=== PATIENT | male | born 1935 | race African-American/Black ===

== ENCOUNTER 2018-08-22 06:10 | Day surgery (SDC) | payer OTHER ==
[2018-08-17 13:58] LABS: Absolute Lymphocytes (CBC) 1.3 K/uL (0.7-4.9); Absolute Monocytes 0.8 K/uL (0.1-1.3); Absolute Neutrophil 2.2 K/uL (1.8-8.0); Basophils % 1.8 % (0-1.3); Eosinophils % 8.3 % (0-4.4); Hematocrit 29.8 % (39.6-49.0); MPV 8.1 fL (7.6-11.3); Monocytes % 16.5 % (3.3-12.3); RBC Red Blood Cell Count 4.45 M/uL (4.33-5.43)
[2018-08-17 14:03] LABS: Protime INR 1.11
[2018-08-17 14:10] LABS: Potassium 3.6 mmol/L (3.5-5.1)
--- NOTE | 2018-08-17 14:46 | RAD REPORT ---
EXAM DESCRIPTION: Keot Pa And Lat (2 Views)08/17/2018 2:39 pm CLINICAL HISTORY: Preop for heart catheterization COMPARISON: 2012 FINDINGS: Bilateral interstitial lung opacities are without obvious change and may represent pulmona ry fibrosis. A lung consolidation is not noted. The heart is normal size
[2018-08-17 15:17] LABS: Blood Morphology Comment NOTED (NOT SEEN); Platelet Estimate INCR; Urine White Blood Cell Casts OK
[2018-08-17 15:18] LABS: Anisocytosis 1+; Hypochromasia 1+; Poikilocytosis 1+; Polychromasia 1+
[2018-08-22] MEDS ORDERED: NA CHLORIDE 0.9% 500 ML ONE (07:47)
[2018-08-22] MEDS ORDERED: LIDOCAINE 1% MPF 30 ML VIAL ONE (08:12)
[2018-08-22] MEDS ORDERED: HEPA 1000U/500MLS 1,000 UNIT/500 ML BAG IV ONE (08:12)
[2018-08-22] MEDS ORDERED: MIDAZOLAM HCL 2 MG/2 ML INJ ONE (08:28)
[2018-08-22] MEDS ORDERED: FENTANYL CITR 100 MCG/2 ML ONE (08:29)
[2018-08-22] MEDS ORDERED: NA CHLORIDE 0.9% 0 ML ONE (08:29)
[2018-08-22] MEDS ORDERED: ATROPINE SULF 1 MG/10 ML SYR IV ONE (08:29)
[2018-08-22 10:50] VITALS: BP 165/71; TEMP 97.1; O2SAT 99
--- NOTE | 2018-08-22 19:07 | OP ---
Surgeon: Brian Kaur MD Indications: A patient of Dr. 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 Reason for admission was coronary artery disease, abnormal stress test, cerebrovascular disease, abnormal c arotid Dopplers. Procedure In Detail: The patient is 83, was prepped and draped in the routine sterile fashion. He u nderwent a left heart catheterization, selective coronary artery angiogram, and selective bilateral c arotid angiogram. He was given 2 mg of Versed for sedation. Right common femoral artery access obta ined with a 6-Guyanese sheath. Angio-Seal was used to close the case. Angiography there was normal. Left heart catheterization showed a 40% mid LAD, diffuse plaquing in the circumflex and the RCA. He was left dominant. No significant focal stenosis. The carotid showed a 90% right internal carotid a rtery and 80% left internal carotid artery stenosis. 6-Guyanese sheath was used. No complications. Blood Loss: 5 cc. Postoperative Diagnoses: Coronary artery disease, mild, and cardiovascular disease, severe. Plan: Bilateral CEA. Co-yoker machine operator: Nilo Zapata. Anesthesia: Conscious sedation was 30 minutes. BRITTANIE/LASHONDA Voice ID: [id number] Report ID: [id number]
== END 2018-08-22 11:00 | disposition home or self-care (01) ==
LOC: CCL 06:10
DX: I25.10 Atherosclerotic heart disease of native coronary artery without angina pectoris (principal); I65.23 Occlusion and stenosis of bilateral carotid arteries; I44.7 Left bundle-branch block, unspecified; Z87.891 Personal history of nicotine dependence; Z85.46 Personal history of malignant neoplasm of prostate; Z92.3 Personal history of irradiation
CPT/HCPCS: 85025; 80048; 36415; 85610; 85730; 71046; 93454; 36222; C1893; C1760; J2250; J3010; J0583

== ENCOUNTER 2020-11-24 06:30 | Day surgery (SDC) | payer OTHER ==
--- NOTE | 2020-11-21 14:39 | RAD REPORT ---
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 No acute interstitial process identifiable. Severity of chronic disease could mask mild edema or infiltrate. No significant failure or volume overload id entifiable. Trachea is midline. Hilar regions within normal limits. Heart size is normal and central vasculatur e is within normal limits. No pleural effusion or pneumothorax seen. No acute bony finding noted. No aortic abnormality. IMPRESSION: No acute cardiopulmonary process. Prominent interstitial pattern matches comparison.
[2020-11-21 14:46] LABS: Potassium 3.9 mmol/L (3.5-5.1)
[2020-11-21 14:51] LABS: Absolute Lymphocytes (CBC) 1.2 K/uL (0.7-4.9); Basophils % 1.7 % (0-1.3); Hematocrit 31.1 % (39.6-49.0); Lymphocytes % 22.4 % (15.3-44.8); MPV 8.3 fL (7.6-11.3); RBC Red Blood Cell Count 4.73 M/uL (4.33-5.43)
[2020-11-21 15:17] LABS: Protime INR 1.08
[2020-11-21 18:44] LABS: Blood Morphology Comment NOTED (NOT SEEN); Hypochromasia 1+; Poikilocytosis 2+; Target Cells FEW; Teardrop Cell FEW
[2020-11-21 18:45] LABS: Burr Cells FEW; Platelet Estimate INCR; White Blood Cell Scan OK (OK)
--- NOTE | 2020-11-22 09:45 | EKG ---
Test Date: 2020-11-21 Test Time: 13:07:21 Construction Equipment Mechanic: Radha MEASUREMENT RESULTS: Intervals: Rate: 63 MN: 162 QRSD: 152 QT: 452 QTc: 462 [place]: P: 77 MN: 162 QRS: 2 T: 97 INTERPRETIVE STATEMENTS: Normal sinus rhythm Nonspecific intraventricular block Abnormal ECG Compared to ECG 05/05/2012 07:11:11 Sinus bradycardia no longer present Electronically Signed On 11-22-20 09:43:43 CDT by Brian Kaur
[2020-11-24] MEDS ORDERED: NA CHLORIDE 0.9% 500 ML ONE (07:03)
[2020-11-24] MEDS ORDERED: HEPA 1000U/500MLS 1,000 UNIT/500 ML BAG IV ONE (07:03)
[2020-11-24] MEDS ORDERED: LIDOCAINE 1% 20 ML MDV ONE (07:03)
[2020-11-24] MEDS ORDERED: MIDAZOLAM HCL 2 MG/2 ML INJ ONE (07:35)
[2020-11-24] MEDS ORDERED: FENTANYL CITR 100 MCG/2 ML ONE (07:35)
[2020-11-24] MEDS ORDERED: ATROPINE SULF 1 MG/10 ML SYR IV ONE (07:36)
[2020-11-24] MEDS ORDERED: ACETYLCYST 20% 4 ML VIAL IH ONE (08:05)
[2020-11-24 09:02] VITALS: TEMP 96
--- NOTE | 2020-11-24 10:30 | OP ---
Surgeon: Brian Kaur MD Oxygen Therapist: Marta Cobian. Reason For Admission: Selective bilateral carotid angiogram. Indication: Cerebrovascular disease by Doppler. Procedure In Detail: The patient was brought to the laborer powerhouse, prepped and draped in routine sterile fashion. Given fentanyl and Versed for sedation. A 6-Prydeinig sheath was introduced successfully in t he right common femoral artery. Angiography there was normal. Angio-Seal was used to close the case . A JR4 catheter was used to select the right common carotid artery and the left common carotid qi ry separately. He was found to have a 50% right ICA. His common carotid artery and external carotid artery on the right and the left were normal. He, however, had a very tight 80% plus lesion in the left internal carotid artery. There were no complications. Blood Loss: 5 mL. Anesthesia: Total conscious sedation was 45 minutes. Postoperative Diagnosis: Severe left internal carotid artery stenosis. He needs a left carotid enda rterectomy. He has a moderate right carotid stenosis. Plan: The patient will remain in the hospital for 2 hours of bedrest. He will have a CD with him an d will make appointment for him to see a cardiovascular surgeon in [place] for endarterectomy in the near future. BRITTANIE/LASHONDA Voice ID: [id number] Report ID: [id number]
[2020-11-24 15:01] VITALS: O2SAT 99
[2020-11-24 15:03] VITALS: BP 149/63
== END 2020-11-24 14:10 | disposition home or self-care (01) ==
LOC: CCL 06:30
DX: I65.23 Occlusion and stenosis of bilateral carotid arteries (principal); I25.10 Atherosclerotic heart disease of native coronary artery without angina pectoris; I10 Essential (primary) hypertension; I44.7 Left bundle-branch block, unspecified; E78.00 Pure hypercholesterolemia, unspecified; Z87.891 Personal history of nicotine dependence
CPT/HCPCS: 93005; 85025; 80048; 36415; 85610; 85730; 71046; 36222 ×2; C1893; C1760; J2250; J3010; J7040; J1644

== ENCOUNTER 2021-12-08 14:23 | Inpatient (IN) | payer OTHER ==
[2021-12-08] MEDS ORDERED: MORPHINE 2 MG/ML SYR ONE (15:21)
[2021-12-08] MEDS ORDERED: ONDANSETRON 4 MG/2 ML VIAL ONE (15:21)
[2021-12-08 15:26] LABS: Urine Blood Negative (Negative); Urine Glucose Negative (Negative); Urine Protein Negative (Negative); Urine Specific Gravity 1.025 (1.005-1.030); Urine pH 5.5 (5.0-7.0)
[2021-12-08 15:46] LABS: Absolute Lymphocytes (CBC) 0.9 K/uL (0.7-4.9); Hematocrit 27.1 % (39.6-49.0); Lymphocytes % 13.1 % (15.3-44.8); MCV 67.4 fL (80-100); MPV 8.2 fL (7.6-11.3); RBC Red Blood Cell Count 4.02 M/uL (4.33-5.43)
[2021-12-08 16:01] LABS: Urine Bacteria <20 /HPF (NONE SEEN); Urine Mucus SLIGHT /HPF (NONE SEEN); Urine RBC <5 /HPF (NONE SEEN)
[2021-12-08 16:04] LABS: Albumin 3.5 g/dL (3.4-5.0); Bilirubin Total 1.4 mg/dL (0.2-1.0); Potassium 4.1 mmol/L (3.5-5.1); Protein, Total 7.3 g/dL (6.4-8.2)
[2021-12-08] MEDS ORDERED: NA CHLORIDE 0.9% 250 ML ONE (16:13)
--- NOTE | 2021-12-08 16:56 | RAD REPORT ---
EXAM DESCRIPTION: CTAbdomen Pelvis W Contrast - 12/08/2021 4:45 pm CLINICAL HISTORY: Abdominal pain. LLQ abdominal pain COMPARISON: No comparisons TECHNIQUE: Biphasic CT imaging of the abdomen and pelvis was performed with 100 ml non-ionic IV cont rast. All CT scans are performed using dose optimization technique as appropriate and may include automated exposure control or mA/KV adjustment according to patient size. FINDINGS: The lower lung lewis are emphysematous with atelectasis in the inferior left lung base. The liver contains a 18 mm hypodensity in the superior right lobe likely a cyst. Additional small cys ts are suspected in the liver. No intra or extrahepatic biliary tree dilatation. The spleen, pancreas , adrenal glands and kidneys are within normal limits. Benign right renal cyst measuring 27 mm. Mild free fluid is seen in the abdomen or pelvis. There is moderate retained colonic stool seen throu ghout the colon. Sigmoid diverticulosis is present without diverticulitis. Nonvisualization the appen jordan. Moderate aortoiliac atherosclerosis. No evidence of significant lymphadenopathy. Mild to moderate lower lumbar degenerative changes. IMPRESSION: Moderate stool is present throughout the colon. Mild free fluid in the abdomen and pelvis.
--- NOTE | 2021-12-08 17:45 | ER ---
Nurse's Notes [facility] Name: Ming Prakash Age: 86 yrs Sex: Male : 1935 Arrival Date: 12/08/2021 Time: 14:30 Bed 7 Private MD: Jean Turner F Diagnosis: Hypo-osmolality and hyponatremia Presentation: 12/08 14:49 Chief complaint: Patient states: Left flank pain X 8 days. Coronavirus screen: At this ld1 time, the client does not indicate any symptoms associated with coronavirus-19. Ebola Screen: No symptoms or risks identified at this time. 14:49 Method Of Arrival: Ambulatory ld1 14:50 Initial Sepsis Screen: Does the patient meet any 2 criteria? No. Patient's initial ld1 sepsis screen is negative. Does the patient have a suspected source of infection? No. Patient's initial sepsis screen is negative. Risk Assessment: Do you want to hurt yourself or someone else? Patient reports no desire to harm self or others. Onset of symptoms was December 08, 2021 at 14:51. 14:50 Acuity: YAKOV 3 ld1 Triage Assessment: 14:51 General: Appears in no apparent distress. comfortable, Behavior is calm, cooperative, ld1 appropriate for age. Pain: Complains of pain in left low back Pain does not radiate. Pain currently is 8 out of 10 on a pain scale. Quality of pain is described as throbbing. EENT: No signs and/or symptoms were reported regarding the EENT system. Neuro: Level of Consciousness is awake, alert, obeys commands, Oriented to person, place, time, situation, Appropriate for age. Cardiovascular: Capillary refill < 3 seconds Patient's skin is warm and dry. Respiratory: Airway is patent Respiratory effort is even, unlabored. GI: Abdomen is flat, non-distended. : No signs and/or symptoms were reported regarding the genitourinary system. Derm: No signs and/or symptoms reported regarding the dermatologic system. Musculoskeletal: No signs and/or symptoms reported regarding the musculoskeletal system. Historical: - Allergies: 14:49 No Known Allergies; ld1 - Home Meds: 14:50 lisinopril 20 mg Oral tab 1 tab once daily [Active]; ld1 14:51 atorvastatin 20 mg oral tab 1 tab once daily [Active]; ld1 - PMHx: 14:49 Hypercholesterolemia; Hypertensive disorder; ld1 - PSHx: 14:49 None; ld1 - Immunization history:: Adult Immunizations up to date, Client reports receiving the 2nd dose of the Covid vaccine. - Social history:: Smoking status: Patient denies any tobacco usage or history of. Patient/guardian denies using alcohol. Screenin:50 Abuse screen: Denies threats or abuse. Denies injuries from another. Nutritional bp screening: No deficits noted. Tuberculosis screening: No symptoms or risk factors identified. Fall Risk None identified. Assessment: 14:50 General: SEE TRIAGE NOTE. bp 17:10 Reassessment: No changes from previously documented assessment. Patient and/or family bp updated on plan of care and expected duration. Pain level reassessed. 19:27 Reassessment: Patient appears in no apparent distress at this time. Patient and/or as6 family updated on plan of care and expected duration. Pain level reassessed. Patient is alert, oriented x 3, equal unlabored respirations, skin warm/dry/pink. Vital Signs: 14:49 BP 137 / 72; Pulse 75; Resp 18; Temp 98.2; Pulse Ox 100% on R/A; Weight 58.06 kg; ld1 Height 5 ft. 6 in. (167.64 cm); Pain 8/10; 17:09 BP 144 / 67; Pulse 64; Resp 16; Pulse Ox 98% ; bp 18:29 BP 144 / 75; Pulse 68; Resp 15; Pulse Ox 98% ; jl7 19:27 BP 121 / 63; Pulse 67; Resp 18 S; Pulse Ox 100% on R/A; Pain 0/10; as6 20:30 BP 141 / 60; Pulse 72; Resp 20; Pulse Ox 99% on R/A; kl 14:49 Body Mass Index 20.66 (58.06 kg, 167.64 cm) ld1 ED Course: 14:30 Patient arrived in ED. mr 14:30 Jean Turner MD is Private Physician. mr 14:50 Patient has correct armband on for positive identification. Bed in low position. Call bp light in reach. Side rails up X2. 14:51 Triage completed. ld1 14:51 Arm band placed on right wrist. ld1 14:52 Bijan Blair PA is PHCP. cp 14:52 Louis Mccollum DO is Attending Physician. cp 14:56 Herb Ventura, ARMANDO is Primary Nurse. bp 15:00 Inserted saline lock: 20 gauge in right forearm, using aseptic technique. Blood bp collected. 16:47 CT Abd/Pelvis - IV Contrast Only In Process Unspecified. EDMS 17:43 Oni Riley MD is Hospitalizing Provider. cp 17:53 Jean Turner MD is Hospitalizing Provider. cp 19:24 Primary Nurse role handed off by Herb Ventura, ARMANDO mw2 19:26 Des Jimenez RN is Primary Nurse. as6 20:30 No provider procedures requiring assistance completed. kl 20:30 Patient admitted, IV remains in place. kl Administered Medications: 15:15 Drug: morphine 2 mg Route: IVP; Infused Over: 4 mins; Site: right forearm; bp 17:20 Follow up: Response: No adverse reaction bp 15:15 Drug: Zofran (Ondansetron) 4 mg Route: IVP; Site: right forearm; bp 17:20 Follow up: Response: No adverse reaction bp 15:45 Drug: NS 0.9% 250 ml Route: IV; Rate: bolus; Site: right forearm; bp 18:09 Follow up: IV Status: Completed infusion; IV Intake: 250ml bp 17:50 Drug: NS 0.9% 1000 ml Route: IV; Rate: 50 ml/hr; Site: right forearm; bp 18:30 Follow up: Response: No adverse reaction; IV Status: Infusion continued upon admission jl7 Medication: 14:50 VIS not applicable for this client. bp Intake: 18:09 IV: 250ml; Total: 250ml. bp Outcome: 17:44 Decision to Hospitalize by Provider. cp 20:29 Admitted to Med/surg accompanied by nurse, family with patient, via stretcher, room kl 215, Report called to Marlene ROBERTS 20:29 Condition: stable 20:29 Instructed on the need for admit, Demonstrated understanding of instructions. 21:02 Patient left the ED. as6 Signatures: Dispatcher [employer] EDMS Dorene Christy RN RN kl Rivera, Mary mr Page, Corey, PA PA cp Suhas Packer RN RN jl7 Herb Ventura RN RN bp Kin Johnson mw2 Tessa Hare, RN RN ld1 Des Jimenez RN RN as6 Corrections: (The following items were deleted from the chart) 14:51 14:49 [facility] Meds: Unable to obtain; ld1 ld1
--- NOTE | 2021-12-08 17:45 | EDPHYS ---
Physician Documentation [facility] Name: Ming Prakash Age: 86 yrs Sex: Male : 1935 Arrival Date: 12/08/2021 Time: 14:30 Bed 7 Private MD: Jean Turner F ED Physician Louis Mccollum HPI: 12/08 15:07 This 86 yrs old Black Male presents to ER via Ambulatory with complaints of Abdominal cp Pain, Back Pain. 15:07 The patient complains of pain in the left flank. cp 15:07 The pain radiates to the left low back. cp 15:07 Onset: The symptoms/episode began/occurred 8 day(s) ago. cp 15:07 Associated signs and symptoms: Pertinent negatives: diarrhea, dysuria, fever, urinary cp frequency, hematuria, pain radiating to the lower extremities, vomiting. Severity of pain: in the emergency department the pain is unchanged despite home interventions. Historical: - Allergies: 14:49 No Known Allergies; ld1 - Home Meds: 14:50 lisinopril 20 mg Oral tab 1 tab once daily [Active]; ld1 14:51 atorvastatin 20 mg oral tab 1 tab once daily [Active]; ld1 - PMHx: 14:49 Hypercholesterolemia; Hypertensive disorder; ld1 - PSHx: 14:49 None; ld1 - Immunization history:: Adult Immunizations up to date, Client reports receiving the 2nd dose of the Covid vaccine. - Social history:: Smoking status: Patient denies any tobacco usage or history of. Patient/guardian denies using alcohol. ROS: 15:15 Constitutional: Negative for body aches, chills, fever, poor PO intake. cp 15:15 Eyes: Negative for injury, pain, redness, and discharge. cp 15:15 ENT: Negative for drainage from ear(s), ear pain, sore throat, difficulty swallowing, difficulty handling secretions. 15:15 Cardiovascular: Negative for chest pain, edema, palpitations. 15:15 Respiratory: Negative for cough, shortness of breath, wheezing. 15:15 Abdomen/GI: Positive for abdominal pain, of the anterior aspect of left lateral abdomen, Negative for vomiting, diarrhea, constipation, black/tarry stool, rectal bleeding. 15:15 Back: Negative for injury or acute deformity, decreased range of motion, radiated pain. 15:15 : Positive for flank pain, Negative for urinary symptoms, testicular pain 15:15 Skin: Negative for cellulitis, rash. 15:15 Neuro: Positive for weakness, Negative for altered mental status, dizziness, headache, syncope. 15:15 All other systems are negative. Exam: 15:20 Constitutional: The patient appears in no acute distress, alert, awake, cp non-diaphoretic, non-toxic, well developed, well nourished. 15:20 Head/Face: Normocephalic, atraumatic. cp 15:20 Eyes: Periorbital structures: appear normal, Conjunctiva: normal, no exudate, no injection, Sclera: no appreciated abnormality, Lids and lashes: appear normal, bilaterally. 15:20 ENT: External ear(s): are unremarkable, Nose: is normal, Mouth: Lips: moist, Oral mucosa: moist, Posterior pharynx: Airway: no evidence of obstruction, patent. 15:20 Neck: ROM/movement: is normal, is supple, without pain, no range of motions limitations. 15:20 Chest/axilla: Inspection: normal, Palpation: is normal, no crepitus, no tenderness. 15:20 Cardiovascular: Rate: normal, Rhythm: regular, Edema: is not appreciated, JVD: is not appreciated. 15:20 Respiratory: the patient does not display signs of respiratory distress, Respirations: normal, no use of accessory muscles, no retractions, labored breathing, is not present, Breath sounds: are clear throughout, no decreased breath sounds, no stridor, no wheezing. 15:20 Abdomen/GI: Inspection: abdomen appears normal, Bowel sounds: active, all quadrants, Palpation: soft, in all quadrants, moderate abdominal tenderness, in the left lower lateral anterior abdomen, rebound tenderness, is not appreciated, voluntary guarding, is not appreciated, involuntary guarding, is not appreciated. 15:20 Back: CVA tenderness, is absent. 15:20 Skin: cellulitis, is not appreciated, no rash present. 15:20 Neuro: Orientation: to person, place \\T\\ time. Mentation: is normal, Motor: moves all fours, strength is normal, Sensation: is normal. 17:55 ECG was reviewed by the Attending Physician. cp Vital Signs: 14:49 BP 137 / 72; Pulse 75; Resp 18; Temp 98.2; Pulse Ox 100% on R/A; Weight 58.06 kg; ld1 Height 5 ft. 6 in. (167.64 cm); Pain 8/10; 17:09 BP 144 / 67; Pulse 64; Resp 16; Pulse Ox 98% ; bp 18:29 BP 144 / 75; Pulse 68; Resp 15; Pulse Ox 98% ; jl7 19:27 BP 121 / 63; Pulse 67; Resp 18 S; Pulse Ox 100% on R/A; Pain 0/10; as6 20:30 BP 141 / 60; Pulse 72; Resp 20; Pulse Ox 99% on R/A; kl 14:49 Body Mass Index 20.66 (58.06 kg, 167.64 cm) ld1 MDM: 14:58 Patient medically screened. cp 17:15 Data reviewed: vital signs, nurses notes, lab test result(s), radiologic studies, CT cp scan, and as a result, I will admit patient. 17:15 Test interpretation: by ED physician or midlevel provider: ECG, plain radiologic cp studies. 17:53 Physician consultation: Jean Turner MD was called at 17:54, left message on [email or web address].cp 18:00 ED course: VSS. Multiple messages left on voice mail of DR Turner with no answer. Will cp admit. 12/08 15:07 Order name: CBC with Diff; Complete Time: 16:08 cp 12/08 16:09 Interpretation: Normal except: RBC 4.02; HGB 9.0; HCT 27.1; MCV 67.4; MCH 22.4; PLT cp 469; RDW 16.3; LYM% 13.1. 12/08 15:07 Order name: CMP; Complete Time: 16:08 cp 12/08 17:10 Interpretation: Normal except: NA 120; CL 85; BUN 26; CRE 1.47; GFR 47; BILIT 1.4; GLOB cp 3.8; A/G 0.9. 12/08 15:07 Order name: Lipase; Complete Time: 16:08 cp 12/08 15:07 Order name: Urine Microscopic Only; Complete Time: 16:08 cp 12/08 15:26 Order name: Urine Dipstick-Ancillary; Complete Time: 16:08 EDMS 12/08 18:03 Order name: COVID-19 SARS RT PCR (Document "Date of Onset" if Symptomatic) 12/08 15:26 Order name: CT Abd/Pelvis - IV Contrast Only; Complete Time: 17:04 12/08 17:05 Interpretation: Report reviewed. 12/08 18:54 Order name: Basic Metabolic Panel EDMS 12/08 18:54 Order name: Basic Metabolic Panel EDMS 12/08 18:54 Order name: CBC with Automated Diff EDMS 12/08 18:54 Order name: CBC with Automated Diff EDMS 12/08 15:07 Order name: IV Saline Lock; Complete Time: 15:35 cp 12/08 15:07 Order name: Labs collected and sent; Complete Time: 15:35 cp 12/08 15:07 Order name: Urine Dipstick-Ancillary (obtain specimen); Complete Time: 15:35 12/08 17:11 Order name: EKG; Complete Time: 17:11 12/08 17:11 Order name: EKG - Nurse/Tech; Complete Time: 17:57 12/08 18:54 Order name: Regular EDMS EC:55 Rate is 72 beats/min. Rhythm is regular. MN interval is normal. QRS interval is cp prolonged at 140 msec. QT interval is normal. Interpreted by me. Reviewed by me. Administered Medications: 15:15 Drug: morphine 2 mg Route: IVP; Infused Over: 4 mins; Site: right forearm; bp 17:20 Follow up: Response: No adverse reaction bp 15:15 Drug: Zofran (Ondansetron) 4 mg Route: IVP; Site: right forearm; bp 17:20 Follow up: Response: No adverse reaction bp 15:45 Drug: NS 0.9% 250 ml Route: IV; Rate: bolus; Site: right forearm; bp 18:09 Follow up: IV Status: Completed infusion; IV Intake: 250ml bp 17:50 Drug: NS 0.9% 1000 ml Route: IV; Rate: 50 ml/hr; Site: right forearm; bp 18:30 Follow up: Response: No adverse reaction; IV Status: Infusion continued upon admission jl7 Disposition: 22:42 Co-signature as Attending Physician, Louis FRANK was immediately available on-site ms3 in the Emergency Department for consultation in the care of the patient. . Disposition Summary: 12/08/21 17:44 Hospitalization Ordered Hospitalization Status: Inpatient Admission cp Condition: Stable cp Problem: new cp Symptoms: have improved cp Bed/Room Type: Standard cp Provider: Jean Turner(12/08/21 17:53) cp Location: Telemetry/MedSurg (Inpatient)(12/08/21 19:45) mw Room Assignment: 215(12/08/21 20:09) mw Diagnosis - Hypo-osmolality and hyponatremia cp Forms: - Medication Reconciliation Form cp - SBAR form cp Signatures: Dispatcher [employer] EDMS April Cope RN RN mw Bijan Blair PA PA cp Herb Ventura, RN RN bp Louis Mccollum DO DO ms3 Tessa Hare RN RN ld1 Suhas Packer RN jl7 Corrections: (The following items were deleted from the chart) 14:51 14:49 Home Meds: Unable to obtain; ld1 ld1 15:30 15:30 Test interpretation: by ED physician or midlevel provider: chest xray appears cp clear with no infiltrates, cp 17:10 17:10 Normal except: NA 120; CL 85; BUN 26; CRE 1.47; GFR 47; BILIT 1.4. cp cp 17:53 17:44 Oni Riley cp cp 19:40 17:44 cp mw 19:45 17:44 Telemetry/MedSurg (Inpatient) cp mw 19:45 19:40 215 mw mw 20:09 19:45 mw mw
[2021-12-08] MEDS ORDERED: NA CHLORIDE 0.9% 1,000 ML ONE (17:52)
[2021-12-08] MEDS ORDERED: ONDANSETRON 4 MG/2 ML VIAL IV PRN (18:51)
[2021-12-08] MEDS ORDERED: NA CHLORIDE 0.9% 1,000 ML IV SCH (19:00)
[2021-12-08 21:39] VITALS: BMI 17.2
[2021-12-09 04:07] LABS: Absolute Lymphocytes (CBC) 0.7 K/uL (0.7-4.9); Hematocrit 25.1 % (39.6-49.0); Lymphocytes % 11.5 % (15.3-44.8); MCV 67.5 fL (80-100); MPV 7.7 fL (7.6-11.3); RBC Red Blood Cell Count 3.72 M/uL (4.33-5.43)
[2021-12-09 04:23] LABS: Potassium 3.9 mmol/L (3.5-5.1)
[2021-12-09 04:39] LABS: Blood Morphology Comment NOTED (NOT SEEN); Platelet Estimate ADEQ; White Blood Cell Scan OK (OK)
[2021-12-09] MEDS: NA CHLORIDE 0.9% 1,000 ML IV SCH ×2 (09:18→21:23)
--- NOTE | 2021-12-09 09:37 | RAD REPORT ---
EXAM DESCRIPTION: Karl Single View12/09/2021 9:23 am CLINICAL HISTORY: Hyponatremia COMPARISON: 2020 FINDINGS: Lungs are hyperaerated. The lungs appear clear of acute infiltrate. The heart is normal size IMPRESSION: No acute abnormalities displayed
--- NOTE | 2021-12-09 11:07 | EKG ---
Test Date: 2021-12-08 Test Time: 17:49:22 Distribution Accounting Clerk: BP MEASUREMENT RESULTS: Intervals: Rate: 72 OK: 132 QRSD: 140 QT: 450 QTc: 492 [place]: P: 109 OK: 132 QRS: 33 T: 65 INTERPRETIVE STATEMENTS: Normal sinus rhythm Left bundle branch block Abnormal ECG Compared to ECG 11/21/2020 13:07:21 Left bundle-branch block now present Electronically Signed On 12-09-21 11:06:19 CDT by Velasquez Pollard
--- NOTE | 2021-12-09 13:16 | P.HP ---
Certification for Inpatient With expected LOS: >2 Midnights Patient will require the following post-hospital care: Home Health Services Practitioner: I am a practitioner with admitting privileges, knowledge of patient current condition, hospital course, and medical plan of care. Services: Services provided to patient in accordance with Admission requirements found in Title 42 Section 412.3 of the Code of Federal Regulations Patient History Date of Service: 12/09/21 Reason for admission: Weight loss, hyponatremia and Abdominal pain History of Present Illness: Age 86 hard of hearing aw lower back/ abdominal pain. Daughter at bedside. Amulating. Exp seizure like episode with post ictal changes. Lost a lot to weight. Very active at baseline Allergies No Known Allergies Allergy (Verified 11/21/20 13:46) Home Medications: Atorvastatin Calcium 20 mg PO DAILY 11/21/20 Lisinopril/Hydrochlorothiazide [Lisinopril-Hctz 20-25 mg Tab] 1 each PO DAILY 11/21/20 - Past Medical/Surgical History Has patient received pneumonia vaccine in the past: Yes Diabetic: No -: HTN -: HIGH CHOLESTEROL -: RT/LT CAROTID ENDARTERECTOMY - Social History Smoking Status: Current every day smoker Alcohol use: No CD- Drugs: No Caffeine use: Yes Place of Residence: Home Review of Systems 10-point ROS is otherwise unremarkable General: Weakness Gastrointestinal: As per HPI Physical Examination - Vital Signs Temperature: 97.7 F Blood Pressure: 106/52 Pulse: 59 Respirations: 16 Pulse Ox (%): 98 - Physical Exam General: Alert, In no apparent distress, Oriented x3 Neck: Supple Respiratory: Clear to auscultation bilaterally Cardiovascular: No edema, Regular rate/rhythm Gastrointestinal: Normal bowel sounds, Soft and benign Musculoskeletal: No clubbing, No swelling Integumentary: No rashes, No breakdown Neurological: Normal speech, Normal strength at 5/5 x4 extr, Cranial nerves 3-12 intact - Studies Laboratory Data (last 24 hrs) 12/08/21 15:15: Sodium 120 L, Potassium 4.1, BUN 26 H, Creatinine 1.47 H, Glucose 92, Total Bilirubin 1.4 H, AST 17, ALT 16, Alkaline Phosphatase 55, Lipase 67 L 12/08/21 15:15: WBC 6.6, Hgb 9.0 L, Hct 27.1 L, Plt Count 469 H Assessment and Plan - Problems (Diagnosis) (1) Hyponatremia syndrome Current Visit: Yes Status: Acute Plan: secondary to volume depletion. CW IVF fluids, PT is on diuretics to DC renal failure improving with IVF , TSH pending (2) Seizure Current Visit: Yes Status: Acute Plan: ? seizure like acure activity. No prior episodes. CT heat ordered (3) Microcytic anemia Current Visit: Yes Status: Acute Plan: C microcytic anemia- Iron studies pending. C thrombosytosis - Advance Directives Does patient have a Living Will: No Does patient have a Durable POA for Healthcare: No
--- NOTE | 2021-12-09 14:20 | RAD REPORT ---
EXAM DESCRIPTION: CT - Head Brain Wo Cont - 12/09/2021 2:14 pm CLINICAL HISTORY: seizures? Headache, drowsiness, seizure COMPARISON: No comparisons TECHNIQUE: All CT scans are performed using dose optimization technique as appropriate and may inclu de automated exposure control or mA/KV adjustment according to patient size. FINDINGS: No intracranial hemorrhage, hydrocephalus or extra-axial fluid collection.Mild brain atrop hy with mild chronic periventricular and deep white matter chronic microvascular ischemic changes.No areas of brain edema or evidence of midline shift. Chronic left maxillary sinusitis. The paranasal sinuses mastoids are otherwise clear. The calvarium i s intact. IMPRESSION: No acute intracranial abnormality. Chronic left maxillary sinusitis.
[2021-12-09 14:48] LABS: Ferritin 134.3 ng/mL (26-388); Thyroid Stimulating Hormone 2.09 uIU/mL (0.360-3.740)
[2021-12-10 06:18] LABS: Hematocrit 25.1 % (39.6-49.0); MPV 7.6 fL (7.6-11.3); RBC Red Blood Cell Count 3.76 M/uL (4.33-5.43)
[2021-12-10 06:33] LABS: MCV 66.9 fL (80-100)
--- NOTE | 2021-12-10 08:26 | P.DS ---
Admission Date: 12/08/21 Discharge Date: 12/10/21 Disposition: ROUTINE DISCHARGE Discharge Condition: GOOD Reason for Admission: Weight loss, hyponatremia and Abdominal pain - Problems (1) Hyponatremia syndrome Current Visit: Yes Status: Acute (2) Seizure Current Visit: Yes Status: Acute (3) Microcytic anemia Current Visit: Yes Status: Acute Brief History of Present Illness: Age 86 hard of hearing aw lower back/ abdominal pain. Daughter at bedside. Amulating. Exp seizure like episode with post ictal changes. Lost a lot to weight. Very active at baseline Hospital Course: Pt did well. Ct head neg. TSH normal. Stop losartan /Hztz. vitals stable Sodium stable. Chest clear. Alert oriented X3/ Discharged home Vital Signs/Physical Exam: Temp Pulse Resp BP Pulse Ox 98.1 F 71 16 110/75 99 12/10/21 03:56 12/10/21 03:56 12/10/21 03:56 12/10/21 03:56 12/10/21 03:56 Laboratory Data at Discharge: WBC 5.1 K/uL (4.3-10.9) D 12/10/21 06:04 Hgb 8.4 g/dL (13.6-17.9) L 12/10/21 06:04 Hct 25.1 % (39.6-49.0) L 12/10/21 06:04 Plt Count 428 K/uL (152-406) H 12/10/21 06:04 Sodium 127 mmol/L (136-145) L 12/10/21 06:04 Potassium 4.0 mmol/L (3.5-5.1) 12/10/21 06:04 BUN 12 mg/dL (7-18) 12/10/21 06:04 Creatinine 1.06 mg/dL (0.55-1.3) 12/10/21 06:04 Glucose 96 mg/dL (74-106) 12/10/21 06:04 Total Bilirubin 1.4 mg/dL (0.2-1.0) H 12/08/21 15:15 AST 17 U/L (15-37) 12/08/21 15:15 ALT 16 U/L (12-78) 12/08/21 15:15 Alkaline Phosphatase 55 U/L (45-117) 12/08/21 15:15 Lipase 67 U/L (73-393) L 12/08/21 15:15 Home Medications: Atorvastatin Calcium 20 mg PO DAILY 11/21/20 Physician Discharge Instructions: Stop losartan/HCTZ Diet: Regular Activity: Ad taya Followup: Jean Turner MD [Primary Care Provider] -
[2021-12-10 08:31] VITALS: O2SAT 99
[2021-12-10 09:38] VITALS: BP 129/61; TEMP 97.7
[2021-12-10] MEDS ORDERED: ENSURE PLANT-BASED PROTEIN VANILLA 330 ML CAN PO SCH (21:00)
--- OUTSIDE RECORDS SUMMARY | 2021-12-23 13:41 | XMS REPORT | Continuity of Care Document ---
:1935 Author Organization [facility] t Address [address] [place] [address] Dr. Cabrera [address] [place] [address] Care Team Providers Name Role Phone AMARILYS TENORIO Attending Clinician Unavailable Miller_S_AH Attending Clinician Unavailable Mora-Maryayo_A_AH Attending Clinician Unavailable AMARILYS TENORIO Admitting Clinician Unavailable Miller_S_AH Admitting Clinician Unavailable Mora-Mbayo_A_AH Admitting Clinician Unavailable Payers Payer Name Policy Type Policy Number Effective Date Expiration Date S [facility] OF [place] - [id number] 2019 [employer] 00:00:00 (MEDICARE REPLACEMENT/ADVANT AGE - HMO) Problems Condition Condition Condition Status Onset Resolution Last Treating Co mments Source Name Details Category Date Date Treatment Clinician Date Chronic Chronic Problem Active 2019-06 [place] obstructiv Obstructiv 0-09 [facility] [place] e lung e Lung 00:00: Practic disease Disease 00 e Essential Essential Problem Active Yandy calin hypertensi Hypertensi 7-08 [facility] [place] on on 00:00: Practic 00 e Carcinoma Carcinoma Problem Active Yandy calin of of 08 Family prostate Prostate 00:00: Practi c 00 e Hyperchole Hyperchole Problem Active 0 V [place] sterolemia sterolemia 12-11 [facility] [place] 00:00: Practic 00 e Allergies, Adverse Reactions, Alerts This patient has no known allergies or adverse reactions. Social History Smoking Status Start Date Stop Date Source Former Smoker [place] Family P paradise Medications Ordered Filled Start Stop Current Ordering Indication Dosage Frequency Signature Comments Components Source Medication Medication Date Date Medication? Clinician (SIG) Name Name atorvastati atorvastati No atorvastat [place] n 40 mg n 40 mg in 40 mg Famil y tablet Take tablet Take tablet Practic 1 tablet 1 tablet Take 1 e every day every day tablet by oral by oral every day route. route. by oral route. Boostrix Boostrix No Boostrix Yandy calin Tdap 2.5 Lf Tdap 2.5 Lf Tdap 2.5 Family unit-8 unit-8 Lf unit-8 Practi c mcg-5 mcg-5 mcg-5 e Lf/0.5 mL Lf/0.5 mL Lf/0.5 mL intramuscul intramuscul intramuscu ar syringe ar syringe lar syringe dexamethaso dexamethaso No dexamethas [place] ne sodium ne sodium one sodium Family phosphate phosphate phosphate Practic 0.1 % eye 0.1 % eye 0.1 % eye e drops drops drops Flublok Flublok No Flublok [place] Quad Quad Quad [facility] Practic (PF) 180 (PF) 180 (PF) 180 e mcg (45 mcg mcg (45 mcg mcg (45 x 4)/0.5 mL x 4)/0.5 mL mcg x IM syringe IM syringe 4)/0.5 mL IM syringe Fluzone Fluzone No Fluzone [facility] e High-Dose High-Dose High-Dose [facility] Practi c (PF) 180 (PF) 180 (PF) 180 e mcg/0.5 mL mcg/0.5 mL mcg/0.5 mL intramuscul intramuscul intramuscu ar syringe ar syringe lar syringe lisinopril lisinopril No lisinopril [facility] 10 10 10 Family mg-hydrochl mg-hydrochl mg-hydroch Practic orothiazide orothiazide lorothiazi e 12.5 mg 12.5 mg de 12.5 mg tablet Take tablet Take tablet 1 tablet 1 tablet Take 1 every day every day tablet by oral by oral every day route. route. by oral route. Shingrix Shingrix No Shingrix Yandy calin (PF) 50 (PF) 50 (PF) 50 Family mcg/0.5 mL mcg/0.5 mL mcg/0.5 mL Practic intramuscul intramuscul intramuscu e ar ar lar suspension, suspension, suspension kit kit , kit Vital Signs Vital Name Observation Time Observation Value Comments Source Height 2020-03-19 00:00:00 66 [in_i] [facility] BMI (Body Mass 2020-03-19 00:00:00 20.7 kg/m2 [facility] Index) Practice Body Weight 2020-03-19 00:00:00 128 [lb_av] [facility] Height 2019-12-12 00:00:00 66 [in_i] [facility] BMI (Body Mass 2019-12-12 00:00:00 21 kg/m2 [facility] Index) Practice Body Weight 2019-12-12 00:00:00 130 [lb_av] [facility] Procedures This patient has no known procedures. Encounters Start End Encounter Admission Attending Care Care Encounter Source Date/Time Date/Time Type Type Clinicians Facility Department ID 2020-12-30 2020-12-31 Inpatient [facility] [id number] [place] 00:00:00 00:00:00 , AMARILYS [address] 2020-12-23 2020-12-23 Outpatient [facility] [id number] [place] 00:00:00 00:00:00 , AMARILYS [address] 2020-12-23 2020-12-23 Outpatient [facility] [id number] [place] 00:00:00 00:00:00 , AMARILYS [address] 2020-12-23 2020-12-23 Outpatient [facility] [id number] [place] 00:00:00 00:00:00 , AMARILYS [address] 2020-12-23 2020-12-23 Outpatient [facility] [id number] [place] 00:00:00 00:00:00 , AMARILYS [address] 2020-12-23 2020-12-23 Outpatient [facility] [id number] [place] 00:00:00 00:00:00 , AMARILYS [address] 2020-12-16 2020-12-16 Outpatient [facility] [id number] [place] 00:00:00 00:00:00 , AMARILYS [address] 2020-12-16 2020-12-16 Outpatient [facility] [id number] [place] 00:00:00 00:00:00 , AMARILYS [address] 2020-12-16 2020-12-16 Outpatient [facility] [id number] [place] 00:00:00 00:00:00 , AMARILYS [facility] [facility] 2020-11-26 2020-11-26 Outpatient Miller_S_AH [facility] [phone] [place] 11:01:00 11:01:00 [id number] Family Practic e 2020-04-05 2020-04-05 Outpatient Mora-Mbayo [facility]FP [facility]FP [phone] [place] 12:20:00 12:20:00 _A_AH [id number] Family Practic e 2020-04-05 2020-04-05 Outpatient Mora-Mbayo [facility]FP [facility]FP [phone] [place] 12:20:00 12:20:00 _A_AH [id number] Family Practic e 2020-03-26 2020-03-26 Outpatient Mora-Mbayo VFP VFP [phone] [place] 09:23:00 09:23:00 _A_AH [id number] Family Practic e 2020-03-25 2020-03-25 Outpatient Mora-Mbayo VFP VFP [phone] [place] 09:30:00 09:30:00 _A_AH [id number] Family Practic e 2020-03-19 2020-03-19 Tricia VFP [place] - [id number] [place] 00:00:00 00:00:00 MoraMitchel [facility] Fam juan c haq 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 2020-01-10 2020-01-10 Outpatient Mora-Mbayo VFP VFP [phone] [facility] 09:34:00 09:34:00 _A_AH 23098 Family Practic e 2020-01-04 2020-01-04 Outpatient Mora-Mbayo VFP VFP [phone] [place] 01:27:00 01:27:00 _A_AH 30572 Family Practic e 2019-12-19 2019-12-19 Outpatient Mora-Mbayo VFP VFP [phone] [place] 01:50:00 01:50:00 _A_AH [id number] Family Practic e 2019-12-18 2019-12-18 Outpatient Mora-Mbayo VFP VFP [phone] [facility] 11:00:00 11:00:00 _A_AH 28908 Family Practic e 2019-12-17 2019-12-17 Outpatient Gilberto VFP VFP [phone] [facility] 07:08:00 07:08:00 _A_AH 28428 Family Practic e 2019-12-14 2019-12-14 Outpatient Gilberto VFP VFP [phone] [facility] 08:09:00 08:09:00 _A_AH [id number] Family Practic e 2019-12-12 2019-12-12 Tricia VFP [place] - [id number] [place] 00:00:00 00:00:00 [facility] juan c haq REMOTE INPATIENT CODER: Medical - Practi c [address] [email or web address], [place] [address], [place] [address] , Ph. 2019-09-05 2019-09-05 Outpatient Gilberto VFP VFP [phone] [facility] 01:18:00 01:18:00 _A_AH 20022 Family Practic e Results This patient has no known results.
== END 2021-12-10 10:00 | disposition home or self-care (01) | DRG 641 ==
LOC: ER 14:23 → ERHOLD 19:05 → 2ND 20:16
PROVIDERS: ADMIT Internal Medicine Sleep Medicine; ATTEND Internal Medicine Sleep Medicine
DX: E87.1 Hypo-osmolality and hyponatremia (principal); E44.0 Moderate protein-calorie malnutrition; Z68.1 Body mass index [BMI] 19.9 or less, adult; R56.9 Unspecified convulsions; D50.9 Iron deficiency anemia, unspecified; I10 Essential (primary) hypertension; E78.00 Pure hypercholesterolemia, unspecified; E86.9 Volume depletion, unspecified; F17.210 Nicotine dependence, cigarettes, uncomplicated; Z20.822 Contact with and (suspected) exposure to COVID-19
CPT/HCPCS: 36415; 70450; 71045; 74177; 80048; 80053; 81003; 81015; 82728; 83540; 83690; 84443; 84466; 85025; 85027; 93005; 96361; 96374; 96375; 99285; J2270; J2405; J7030; J7050; Q9967; U0003

== ENCOUNTER 2022-01-12 18:31 | Emergency (ER) | payer OTHER ==
--- OUTSIDE RECORDS SUMMARY | 2022-01-12 18:34 | XMS REPORT | Continuity of Care Document ---
:1935 Author Organization [facility] t Address [address] [place] [address] Dr. Cabrera [address] [place] [address] Care Team Providers Name Role Phone AMARILYS TENORIO Attending Clinician Unavailable Miller_S_AH Attending Clinician Unavailable Mora-Maryayo_A_AH Attending Clinician Unavailable AMARILYS TENORIO Admitting Clinician Unavailable Miller_S_AH Admitting Clinician Unavailable Mora-Mbayo_A_AH Admitting Clinician Unavailable Payers Payer Name Policy Type Policy Number Effective Date Expiration Date S [facility] OF [place] - [id number] 2019 [employer]PLUS 00:00:00 (MEDICARE REPLACEMENT/ADVANT AGE - [...] No Flublok [place] Quad Quad Quad [facility] Practic (PF) 180 (PF) 180 (PF) 180 e mcg (45 mcg mcg (45 mcg mcg (45 x 4)/0.5 mL x 4)/0.5 mL mcg x IM syringe IM syringe 4)/0.5 mL IM syringe Fluzone Fluzone No Fluzone [facility] e High-Dose High-Dose High-Dose [facility] Practi c (PF) 180 (PF) 180 (PF) 180 e mcg/0.5 mL mcg/0.5 mL mcg/0.5 mL intramuscul intramuscul intramuscu ar syringe ar syringe lar syringe lisinopril lisinopril No lisinopril [facility] 10 10 10 Family mg-hydrochl mg-hydrochl mg-hydroch [...] Comments Source Height 2020-03-19 00:00:00 66 [in_i] [facility] BMI (Body Mass 2020-03-19 00:00:00 20.7 kg/m2 [facility] Index) Practice Body Weight 2020-03-19 00:00:00 128 [lb_av] [facility] Height 2019-12-12 00:00:00 66 [in_i] [facility] BMI (Body Mass 2019-12-12 00:00:00 21 kg/m2 [facility] Index) Practice Body Weight 2019-12-12 00:00:00 130 [lb_av] [facility] Procedures This patient has no known procedures. Encounters Start End Encounter Admission Attending Care Care Encounter Source Date/Time Date/Time Type Type Clinicians Facility Department ID 2020-12-30 2020-12-31 Inpatient [facility] [id number] [place] 00:00:00 00:00:00 , AMARILYS [address] 2020-12-23 2020-12-23 Outpatient [facility] [id number] [place] 00:00:00 00:00:00 , AMARILYS [address] 2020-12-23 2020-12-23 Outpatient [facility] [id number] [place] 00:00:00 00:00:00 , AMARILYS [address] 2020-12-23 2020-12-23 Outpatient [facility] [id number] [place] 00:00:00 00:00:00 , AMARILYS [address] 2020-12-23 2020-12-23 Outpatient [facility] [id number] [place] 00:00:00 00:00:00 , AMARILYS [address] 2020-12-23 2020-12-23 Outpatient [facility] [id number] [place] 00:00:00 00:00:00 , AMARILYS [address] 2020-12-16 2020-12-16 Outpatient [facility] [id number] [place] 00:00:00 00:00:00 , AMARILYS [address] 2020-12-16 2020-12-16 Outpatient [facility] [id number] [place] 00:00:00 00:00:00 , AMARILYS [address] 2020-12-16 2020-12-16 Outpatient [facility] [id number] [place] 00:00:00 00:00:00 , AMARILYS [address] [facility] 2020-11-26 2020-11-26 Outpatient Miller_S_AH VFP VFP [phone] [place] 11:01:00 11:01:00 [id number] Family Practic e 2020-04-05 2020-04-05 Outpatient Mora-Mbayo VFP VFP [phone] [place] 12:20:00 12:20:00 _A_AH [id number] Family Practic e 2020-04-05 2020-04-05 Outpatient Mora-Mbayo VFP VFP [phone] [place] 12:20:00 12:20:00 _A_AH [id number] Family Practic e 2020-03-26 2020-03-26 Outpatient Mora-Mbayo VFP VFP [phone] [place] 09:23:00 09:23:00 _A_AH [id number] Family Practic e 2020-03-25 2020-03-25 Outpatient Mora-Mbayo VFP VFP [phone] [place] 09:30:00 09:30:00 _A_AH [id number] Family Practic e 2020-03-19 2020-03-19 Tricia VFP [place] - [id number] [place] 00:00:00 00:00:00 MoraMitchel [facility] Fam juan c haq 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 2020-01-10 2020-01-10 Outpatient Mora-Mbayo VFP VFP [phone] [facility] 09:34:00 09:34:00 _A_AH [id number] Family Practic e 2020-01-04 2020-01-04 Outpatient Mora-Mbayo VFP VFP [phone] [place] 01:27:00 01:27:00 _A_AH [id number] Family Practic e 2019-12-19 2019-12-19 Outpatient Mora-Mbayo VFP VFP [phone] [place] 01:50:00 01:50:00 _A_AH 74581 Family Practic e 2019-12-18 2019-12-18 Outpatient Mora-Mbayo VFP VFP [phone] [facility] 11:00:00 11:00:00 _A_AH 37175 Family Practic e 2019-12-17 2019-12-17 Outpatient Gilberto VFP VFP [phone] [facility] 07:08:00 07:08:00 _A_AH [id number] Family Practic e 2019-12-14 2019-12-14 Outpatient Gilberto VFP VFP [phone] [facility] 08:09:00 08:09:00 _A_AH 86127 Family Practic e 2019-12-12 2019-12-12 Tricia VFP [place] - [id number] [place] 00:00:00 [facility]:00: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 2019-09-05 2019-09-05 Outpatient Gilberto VFP VFP [phone] [facility] 01:18:00 01:18:00 _A_AH [id number] Family Practic e Results This patient has no known results.
[2022-01-12 19:26] LABS: Absolute Lymphocytes (CBC) 0.7 K/uL (0.7-4.9); Hematocrit 24.7 % (39.6-49.0); Lymphocytes % 13.3 % (15.3-44.8); MCV 68.2 fL (80-100); MPV 7.6 fL (7.6-11.3); RBC Red Blood Cell Count 3.62 M/uL (4.33-5.43)
--- NOTE | 2022-01-12 19:37 | RAD REPORT ---
EXAM DESCRIPTION: RAD - Chest Single View - 01/12/2022 7:29 pm CLINICAL HISTORY: CHEST PAIN Chest pain. COMPARISON: Chest Single View dated 12/09/2021; Chest Pa And Lat (2 Views) dated 11/21/2020; Chest Pa A nd Lat (2 Views) dated 08/17/2018; CHEST SINGLE VIEW dated 05/04/2012 FINDINGS: Portable technique limits examination quality. The lungs are emphysematous but grossly clear. The heart is upper limit of normal in size. No displac ed fractures. IMPRESSION: Mild diffuse COPD.
[2022-01-12 19:45] LABS: Magnesium 1.9 mg/dL (1.8-2.4); Potassium 3.5 mmol/L (3.5-5.1); Troponin High Sensitivity 7.5 pg/mL (<58.9)
--- NOTE | 2022-01-12 20:07 | RAD REPORT ---
EXAM DESCRIPTION: CT - Head Brain Wo Cont - 01/12/2022 8:01 pm CLINICAL HISTORY: AMS Headache, drowsiness COMPARISON: Head Brain Wo Cont dated 12/09/2021 TECHNIQUE: All CT scans are performed using dose optimization technique as appropriate and may inclu de automated exposure control or mA/KV adjustment according to patient size. FINDINGS: No intracranial hemorrhage, hydrocephalus or extra-axial fluid collection.Mild brain atrop hy.No areas of brain edema or evidence of midline shift. Chronic left maxillary sinusitis. The calvarium is intact. IMPRESSION: No acute intracranial abnormality. Chronic left maxillary sinusitis.
[2022-01-12 20:31] LABS: Blood Morphology Comment NOTED (NOT SEEN); Platelet Estimate INCR; White Blood Cell Scan OK (OK)
--- NOTE | 2022-01-12 20:37 | ER ---
Nurse's Notes [facility] Name: Ming Prakash Age: 86 yrs Sex: Male : 1935 Arrival Date: 01/12/2022 Time: 18:34 Bed 20 Private MD: Jean Turner F Diagnosis: Chest pain, unspecified;Altered mental status, unspecified Presentation: 01/12 18:39 Chief complaint: Patient's son or daughter states: Tuesday he has surendra altered and having iw chest pains off and on, seems disoriented , repeating himself over and over, was recently admitted for low sodium , has not been feeling good since Tuesday. Coronavirus screen: At this time, the client does not indicate any symptoms associated with coronavirus-19. Ebola Screen: Patient negative for fever greater than or equal to 101.5 degrees Fahrenheit, and additional compatible Ebola Virus Disease symptoms Patient denies exposure to infectious person. Patient denies travel to an Ebola-affected area in the 21 days before illness onset. No symptoms or risks identified at this time. Initial Sepsis Screen: Does the patient meet any 2 criteria? No. Patient's initial sepsis screen is negative. Does the patient have a suspected source of infection? No. Patient's initial sepsis screen is negative. Risk Assessment: Do you want to hurt yourself or someone else? Patient reports no desire to harm self or others. Onset of symptoms was January 10, 2022. 18:39 Method Of Arrival: Ambulatory iw 18:39 Acuity: YAKOV 3 iw Historical: - Allergies: 18:41 No Known Allergies; iw - Home Meds: 18:41 atorvastatin 20 mg Oral tab 1 tab once daily [Active]; lisinopril 20 mg Oral tab 1 tab iw once daily [Active]; - PMHx: 18:41 Hypercholesterolemia; Hypertensive disorder; iw - Social history:: Smoking status: Patient reports the use of cigarette tobacco products, Patient/guardian denies using tobacco, the patient reports quitting approximately 20 years ago. Screenin:10 Abuse screen: Denies threats or abuse. Denies injuries from another. Nutritional sm5 screening: No deficits noted. Tuberculosis screening: No symptoms or risk factors identified. Fall Risk None identified. Assessment: 21:09 General: Appears in no apparent distress. Behavior is cooperative. Pain: Complains of sm5 pain in chest Pain does not radiate. Pain began 2-3 days ago. Neuro: Level of Consciousness is awake, alert. Cardiovascular: Capillary refill < 3 seconds Patient's skin is warm and dry. Respiratory: Airway is patent Trachea midline Respiratory effort is even, unlabored. Vital Signs: 18:39 BP 135 / 66; Pulse 78; Resp 16; Pulse Ox 100% on R/A; Weight 49.9 kg; Height 5 ft. 7 iw in. (170.18 cm); 18:39 Body Mass Index 17.23 (49.90 kg, 170.18 cm) iw ED Course: 18:34 Patient arrived in ED. mr 18:34 Jean Turner MD is Private Physician. mr 18:41 Triage completed. iw 18:42 Arm band placed on. iw 18:45 Isabel Perera FNP-C is PHCP. kb 18:45 Bijan Cantu MD is Attending Physician. kb 19:02 Sujata Barksdale, ARMANDO is Primary Nurse. sm5 19:31 XRAY Chest (1 view) In Process Unspecified. EDMS 20:03 CT Head Brain wo Cont In Process Unspecified. EDMS 20:35 Daniel Silva is Hospitalizing Provider. kb 21:10 Patient has correct armband on for positive identification. Bed in low position. Call sm5 light in reach. Side rails up X2. Client placed on continuous cardiac and pulse oximetry monitoring. NIBP monitoring applied. 21:10 No provider procedures requiring assistance completed. IV discontinued, intact, sm5 bleeding controlled, No redness/swelling at site. Pressure dressing applied. Patient maintains SpO2 saturation greater than 95% on room air. Administered Medications: No medications were administered Medication: 21:10 VIS not applicable for this client. sm5 Outcome: 20:36 Decision to Hospitalize by Provider. kb 20:46 Discharge ordered by MD. kb 21:10 Discharged to home ambulatory, with family. sm5 21:10 Condition: stable 21:10 Discharge instructions given to patient, family, Instructed on discharge instructions, follow up and referral plans. Demonstrated understanding of instructions, follow-up care. 21:10 Patient left the ED. sm5 Signatures: Dispatcher [employer] EDMS Isabel Perera FNP-C FNP-Estephanie Aguirre Irene, RN RN iw Apolonia Sujata, RN RN sm5
--- NOTE | 2022-01-12 20:37 | EDPHYS ---
Physician Documentation [facility] Name: Ming Prakash Age: 86 yrs Sex: Male : 1935 Arrival Date: 01/12/2022 Time: 18:34 Bed 20 Private MD: Jean Turner F ED Physician Bijan Cantu HPI: 01/12 20:33 This 86 yrs old Black Male presents to ER via Ambulatory with complaints of Chest Pain, kb Altered Mental Status. 20:33 The patient or guardian reports chest pain that is located primarily in the substernal kb area. Onset: 3 day(s) ago. The pain does not radiate. Associated signs and symptoms: Pertinent positives: AMS. The chest pain is described as aching. Duration: The patient or guardian reports multiple episodes, that are intermittent, with no pattern. Modifying factors: The symptoms are alleviated by nothing. the symptoms are aggravated by nothing. Severity of pain: At its worst the pain was moderate in the emergency department the pain has improved. The patient has experienced similar episodes in the past. The patient has been recently been admitted at [facility]. 20:34 Daughter states pt has been complaining of chest pain intermittently for 3 days. Has kb also been altered. States pt has been repeating things over and over since Tuesday. States he asked where they were going multiple times on the way here. Pt was recently admitted for hyponatremia so she is concerned his sodium is low again. Historical: - Allergies: 18:41 No Known Allergies; iw - Home Meds: 18:41 atorvastatin 20 mg Oral tab 1 tab once daily [Active]; lisinopril 20 mg Oral tab 1 tab iw once daily [Active]; - PMHx: 18:41 Hypercholesterolemia; Hypertensive disorder; iw - Social history:: Smoking status: Patient reports the use of cigarette tobacco products, Patient/guardian denies using tobacco, the patient reports quitting approximately 20 years ago. ROS: 20:32 Constitutional: Negative for fever, chills, and weight loss. kb 20:32 Cardiovascular: Positive for chest pain, Negative for edema, orthopnea, palpitations, paroxysmal nocturnal dyspnea. 20:32 Neuro: Positive for altered mental status. 20:32 All other systems are negative. Exam: 20:32 Constitutional: This is a well developed, well nourished patient who is awake, alert, kb and in no acute distress. Head/Face: Normocephalic, atraumatic. ENT: Moist Mucous membranes Cardiovascular: Regular rate and rhythm with a normal S1 and S2. No gallops, murmurs, or rubs. No pulse deficits. Respiratory: Respirations even and unlabored. No increased work of breathing. Talking in full sentences Abdomen/GI: Soft, non-tender. No distention Skin: Warm, dry with normal turgor. Normal color. MS/ Extremity: Pulses equal, no cyanosis. Neurovascular intact. Full, normal range of motion. Neuro: Awake and alert, GCS 15, oriented to person, place, time, and situation. Moves all extremities. Normal gait. Psych: Awake, alert, with orientation to person, place and time. Behavior, mood, and affect are within normal limits. 20:32 ECG was reviewed by the Attending Physician. kb Vital Signs: 18:39 BP 135 / 66; Pulse 78; Resp 16; Pulse Ox 100% on R/A; Weight 49.9 kg; Height 5 ft. 7 iw in. (170.18 cm); 18:39 Body Mass Index 17.23 (49.90 kg, 170.18 cm) iw MDM: 18:45 Patient medically screened. kb 20:30 Data reviewed: vital signs, nurses notes. Data interpreted: Pulse oximetry: on room air kb is 100 %. Interpretation: normal. Physician consultation: Sophia SULLIVAN was contacted at 20:32, regarding admission, to the telemetry unit. patient's condition, and will see patient in ED, shortly. 20:43 Counseling: I had a detailed discussion with the patient and/or guardian regarding: the kb historical points, exam findings, and any diagnostic results supporting the discharge/admit diagnosis, lab results, radiology results, the need for further work-up and treatment in the hospital. 20:44 ED course: Pt does not want to be admitted. Wants to go home and family is in agreement kb with outpatient follow up. . 01/12 18:46 Order name: Basic Metabolic Panel; Complete Time: 19:50 kb 01/12 18:46 Order name: CBC with Diff; Complete Time: 20:36 kb 01/12 18:46 Order name: Magnesium; Complete Time: 19:50 kb 01/12 18:46 Order name: NT PRO-BNP; Complete Time: 19:50 kb 01/12 18:46 Order name: Troponin HS; Complete Time: 19:50 kb 01/12 20:32 Order name: CBC Smear Scan; Complete Time: 20:36 EDMS 01/12 18:46 Order name: XRAY Chest (1 view); Complete Time: 19:38 kb 01/12 18:46 Order name: EKG; Complete Time: 18:46 kb 01/12 18:46 Order name: Cardiac monitoring; Complete Time: 19:46 kb 01/12 18:46 Order name: EKG - Nurse/Tech; Complete Time: 19:17 kb 01/12 18:46 Order name: IV Saline Lock; Complete Time: 19:46 kb 01/12 18:46 Order name: Labs collected and sent; Complete Time: 19:46 kb 01/12 18:46 Order name: O2 Per Protocol; Complete Time: 19:17 kb 08 18:46 Order name: CT Head Brain wo Cont; Complete Time: 20:16 kb 01/12 18:46 Order name: O2 Sat Monitoring; Complete Time: 19:17 kb 01/12 20:16 Order name: Urine Dipstick-Ancillary (obtain specimen) kb EC:32 Rate is 74 beats/min. Rhythm is regular. QRS [place] is Normal. [place] interval is normal at kb 74 msec. QRS interval is normal at 136 msec. QT interval is normal at 470 msec. Administered Medications: No medications were administered Disposition Summary: 01/12/22 20:46 Discharge Ordered Location: Home(01/12/22 20:46) kb Condition: Stable(01/12/22 20:46) kb Diagnosis - Chest pain, unspecified(01/12/22 20:46) kb - Altered mental status, unspecified(01/12/22 20:46) kb Followup: kb - With: Emergency Department - When: As needed - Reason: Worsening of condition Followup: kb - With: Private Physician - When: 2 - 3 days - Reason: Recheck today's complaints, Continuance of care, Re-evaluation by your physician Discharge Instructions: - Discharge Summary Sheet kb - Nonspecific Chest Pain, Adult, [id number] kb - Dementia, [id number] kb Forms: - Medication Reconciliation Form kb - Thank You Letter kb - Antibiotic Education kb - Prescription Opioid Use kb Signatures: Dispatcher [employer] EDAZ Isabel Perera, VIBRATING SCREEN OPERATOR-C VIBRATING SCREEN OPERATOR-Ckb Marizol Lynne, RN RN iw Corrections: (The following items were deleted from the chart) 20:45 20:30 Counseling: I had a detailed discussion with the patient and/or guardian kb regarding: the historical points, exam findings, and any diagnostic results supporting the discharge/admit diagnosis, lab results, radiology results, the need for further work-up and treatment in the hospital, kb 20:45 20:30 Physician consultation: Sophia SULLIVAN was contacted at 20:32, regarding kb admission, to the telemetry unit. patient's condition, and will see patient in ED, shortly, kb 20:45 20:36 Observation kb kb 20:45 20:36 Daniel Silva kb kb 20:45 20:36 Telemetry/MedSurg (observation) kb kb 20:45 20:36 Stable kb kb 20:45 20:36 new kb kb 20:45 20:36 are unchanged kb kb 20:45 20:36 Standard kb kb 20:45 20:36 kb kb 20:45 20:36 Chest pain, unspecified kb kb 20:45 20:36 Altered mental status, unspecified kb kb
[2022-01-12 21:56] VITALS: BP 135/66; O2SAT 100
--- NOTE | 2022-01-13 07:54 | EKG ---
Test Date: 2022-01-12 Test Time: 19:15:37 Hypo Dipper: MINO MEASUREMENT RESULTS: Intervals: Rate: 74 DC: 154 QRSD: 136 QT: 424 QTc: 470 [place]: P: 78 DC: 154 QRS: 44 T: 68 INTERPRETIVE STATEMENTS: Normal sinus rhythm with sinus arrhythmia Left bundle branch block Abnormal ECG Compared to ECG 12/08/2021 17:49:22 No significant changes Electronically Signed On 01-13-22 07:52:29 CDT by Brian Kaur
== END 2022-01-12 21:10 | disposition home or self-care (01) ==
LOC: ER 18:31
DX: R07.89 Other chest pain (principal); R41.82 Altered mental status, unspecified; I10 Essential (primary) hypertension; E78.00 Pure hypercholesterolemia, unspecified
CPT/HCPCS: 36415; 70450; 71045; 80048; 83735; 83880; 84484; 85025; 93005; 99284